=== PATIENT | male | born 1970 | race Hispanic/Latino ===

== ENCOUNTER 2020-07-07 14:59 | Emergency (ER) | payer OTHER, SELFPAY ==
[~2020-07-07 14:59] MED LIST: Iopamidol 370 76% 100 ML VIAL ONE
[2020-07-07 15:22] LABS: #Basophils 0.1 thou/uL (0.0-0.2); #Eosinphils 0.2 thou/uL (0.0-0.7); #Lymphocytes 4.2 thou/uL (1.20-3.40); #Monocytes 0.8 thou/uL (0.11-0.59); %Basophils 0.7 % (0.0-1.0); %Eosinophils 2.2 % (0.0-10.0); %Monocytes 6.9 % (0.0-10.0); %Neutrophils 53.2 % (42.0-75.0); Hemoglobin 15.3 g/dL (14.0-18.0); Mean Corpuscular HGB CONC 34.3 g/dL (32.0-36.0); Mean Corpuscular Volume 87.2 fL (78.0-98.0); Mean Platelet Volume 9.7 fL (7.4-10.4); Platelet Count 231 thou/uL (130-400); RBC Distribution Width 12.5 % (11.5-14.5); White Blood Cell (WBC) Count 11.2 thou/uL (4.8-10.8)
[2020-07-07] MEDS ORDERED: Boostrix 0.5 ML (Tdap) VIAL ONE (15:24)
[2020-07-07 15:29] LABS: Prothrombin Time 13.1 sec (12.0-14.7)
[2020-07-07 15:30] LABS: PTT 31.7 sec (22.9-36.1)
[2020-07-07] MEDS ORDERED: Lidocaine 1% (PF) 30 ML VIAL ONE (15:30)
[2020-07-07 15:44] LABS: ALT (SGPT) 35 U/L (8-55); AST (SGOT) 36 U/L (5-34); Albumin 4.3 g/dL (3.5-5.0); Alkaline Phosphatase 110 U/L (40-110); Anion Gap 17 mmol/L (10-20); BUN (Urea Nitrogen) 21 mg/dL (8.9-20.6); Bilirubin, Total 0.4 mg/dL (0.2-1.2); Calc. Creatinine Clearance 0 mL/min (70-130); Carbon Dioxide 20 mmol/L (22-29); Chloride 104 mmol/L (98-107); Globulin 2.8 g/dL (2.4-3.5); Glucose 184 mg/dL (70-105); Potassium 3.9 mmol/L (3.5-5.1); Protein, Total 7.1 g/dL (6.0-8.3); Sodium 137 mmol/L (136-145)
[2020-07-07] MEDS ORDERED: Ondansetron PF 4 MG/2 ML Vial ONE (15:50)
[2020-07-07] MEDS ORDERED: Morphine 4 MG/ML VIAL ONE ×2 (15:50→17:24)
== END 2020-07-07 17:02 | disposition home or self-care (01) ==
LOC: EEVIPCON 14:59 → ERS 14:59
DX: S31.142A Puncture wound of abdominal wall with foreign body, epigastric region without penetration into peritoneal cavity, initial encounter (principal); R00.0 Tachycardia, unspecified; Z79.84 Long term (current) use of oral hypoglycemic drugs; Z79.899 Other long term (current) drug therapy; W34.00XA Accidental discharge from unspecified firearms or gun, initial encounter
CPT/HCPCS: 36416; 71045; 71260; 74177; 80053; 85025; 85610; 85730; 86850; 86900; 86901; 90471; 90715; 96365; 96375; 96376; G0390; J0690; J2001; J2270; J2405; Q9967

== ENCOUNTER 2020-09-23 10:35 | Outpatient (CLI) | payer BC | END 2020-09-23 10:36 | disposition home or self-care (01) | LOC: BICULT 10:35 | PROVIDERS: ATTEND Family Medicine | DX: R10.9 Unspecified abdominal pain (principal); M54.9 Dorsalgia, unspecified; M47.816 Spondylosis without myelopathy or radiculopathy, lumbar region; K76.0 Fatty (change of) liver, not elsewhere classified; I51.7 Cardiomegaly | CPT/HCPCS: 72100; 93975 ==